=== PATIENT | female | born 1980 | race Caucasian/White ===

== ENCOUNTER → 2019-08-12 12:10 | Outpatient (CLI) | payer BC, SELFPAY ==
--- NOTE | ~2019-08-12 | XR_ITS ---
XR elbow LT min 3V DATE: 08/12/2019 12:47 INDICATION: Left elbow pain TECHNIQUE: 5 views COMPARISON: None FINDINGS: There is mild elevation of the fat pads consistent with elbow joint effusion. There is mild spurring of the coronoid process of the proximal ulna. No fracture, dislocation, periosteal reaction or bone destruction is detected. IMPRESSION: Mild elbow joint effusion Mild degenerative change Reviewed, dictated and finalized at location A. TAL MEDIA DESIGNER
--- NOTE | ~2019-08-12 | XR_ITS ---
XR wrist LT min 3V DATE: 08/12/2019 12:47 INDICATION: Left wrist pain TECHNIQUE: 4 views COMPARISON: 01/07/2018 left wrist FINDINGS: No fracture or dislocation, periosteal reaction or bone destruction is detected. Joint spac es are preserved. No chondrocalcinosis or erosive change. IMPRESSION: Negative Reviewed, dictated and finalized at location A. LE ASSEMBLER IMPRESSION: Negative
== END ==
PROVIDERS: PCP Family Medicine; Visit Provider Family Medicine
DX: M25.532 Pain in left wrist (principal); M25.422 Effusion, left elbow
CPT/HCPCS: 73080; 73110

== ENCOUNTER 2021-10-10 10:27 | Outpatient (CLI) | payer BC, SELFPAY ==
[2021-10-10 11:32] LABS: Beta HCG Quantitative < 2.39 mIU/ML
[2021-10-14 08:19] LABS: FSH 8.7 mIU/mL (***); Progesterone 1.2 ng/mL (***); Prolactin 8.6 ng/mL (***)
[2021-10-16 11:12] LABS: DHEA-Sulfate 141 mcg/dL (19-231)
[2021-10-17 12:52] LABS: Testosterone Free 2.3 pg/mL (0.1-6.4); Testosterone Total 18 ng/dL (2-45)
[2021-10-17 20:52] LABS: Estradiol, Ultrasensitive 42 pg/mL
== END 2021-10-10 10:28 | disposition home or self-care (01) ==
LOC: ANHLAB 10:29
PROVIDERS: PCP Family Medicine; Visit Provider Obstetrics & Gynecology
DX: N91.5 Oligomenorrhea, unspecified (principal)
CPT/HCPCS: 36415; 82627; 82670; 83001; 83498; 84144; 84146; 84402; 84403; 84702

== ENCOUNTER → 2023-06-13 15:55 | Outpatient (CLI) | payer BC, SELFPAY ==
--- NOTE | ~2023-06-13 | MM_ITS ---
EXAMINATION: MM screening [facility] BI w merritt HISTORY: Screening mammogram TECHNIQUE: Craniocaudal and mediolateral oblique 3-D tomosynthesis images were obtained and synthetic 2-D images were generated. CAD analysis was submitted and interpreted. COMPARISON: None, baseline BREAST PARENCHYMAL COMPOSITION: There are scattered areas of fibroglandular density. FINDINGS: RIGHT BREAST: An asymmetry is present in the middle third of the upper breast 7 cm from the nipple on the mediolateral oblique. LEFT BREAST: There is a possible small mass in the anterior third of the lower-outer breast 4 cm from the nipple on mediolateral oblique tomosynthesis image . IMPRESSION: 1. Bilateral breast findings as described above. 2. Additional mammographic views and possible breast ultrasound are recommended to evaluate the above -described breast findings and establish a baseline given that this is the first mammographic examina tion. BI-RADS Category 0: Incomplete: Needs additional imaging evaluation. Reviewed, dictated and finalized at location A. OR STOCK PLAN ADMINISTRATOR IMPRESSION: 1. Bilateral breast findings as described above. 2. Additional mammographic views and possible breast ultrasound are recommended to evaluate the above-described breast findings and establish a baseline given that this is the first mammographic examination. BI-RADS Category 0: Incomplete: Needs additional imaging evaluation.
== END ==
PROVIDERS: PCP Physician Assistant; Visit Provider Physician Assistant
DX: Z12.31 Encounter for screening mammogram for malignant neoplasm of breast (principal); R92.8 Other abnormal and inconclusive findings on diagnostic imaging of breast
CPT/HCPCS: 77063; 77067

== ENCOUNTER → 2023-08-27 09:48 | Outpatient (CLI) | payer BC, SELFPAY ==
--- NOTE | ~2023-08-27 | MMUS_ITS ---
EXAMINATION: MM diagnostic [facility] BI w merritt, US breast BI limited HISTORY: Right breast asymmetry and possible left breast masses on baseline screening mammogram TECHNIQUE: Additional 3-D tomosynthesis images of the breasts were performed and synthetic 2-D images were generated. CAD analysis was submitted and interpreted. High resolution limited bilateral breast ultrasound was performed. COMPARISON: 06/13/2023 BREAST PARENCHYMAL COMPOSITION: There are scattered areas of fibroglandular density. FINDINGS: MAMMOGRAPHIC FINDINGS: The right breast asymmetry somewhat disperses with spot compression and has an appearance similar to the left breast. There appears to be a 4 mm obscured, low density mass in the anterior third of the l ower-outer breast at the 5:00 location, 4 cm from the nipple ULTRASOUND: There is no evidence of focal abnormal solid or cystic mass in the vicinity of the mammographic findi ng in question in the right breast. There is a 5 mm cyst of the left breast at the 5:00 location 2 cm from the nipple. IMPRESSION: 1. No mammographic or sonographic evidence of malignancy. 2. Recommend routine screening mammography in one year. BI-RADS Category 2: Benign finding(s). Reviewed, dictated and finalized at location A. OS BI ADMINISTRATOR IMPRESSION: 1. No mammographic or sonographic evidence of malignancy. 2. Recommend routine screening mammography in one year. BI-RADS Category 2: Benign finding(s).
== END ==
PROVIDERS: PCP Physician Assistant; Visit Provider Physician Assistant
DX: R92.8 Other abnormal and inconclusive findings on diagnostic imaging of breast (principal)
CPT/HCPCS: 76642; 77062; 77066; G0279

== ENCOUNTER 2024-06-16 15:23 | Outpatient (CLI) | payer BC, SELFPAY ==
--- NOTE | ~2024-06-16 | MM_ITS ---
EXAMINATION: MM screening [facility] BI w merritt HISTORY: Screening TECHNIQUE: Craniocaudal and mediolateral oblique 3-D tomosynthesis images were obtained and synthetic 2-D images were generated. CAD analysis was submitted and interpreted. COMPARISON: 06/13/2023 BREAST PARENCHYMAL COMPOSITION: Not dense: There are scattered areas of fibroglandular density. FINDINGS: There is no evidence of suspicious mass, calcification, or architectural distortion to sugg est malignancy in either breast. There has been no suspicious interval change. IMPRESSION: 1. No mammographic evidence of malignancy. 2. Recommend routine screening mammography in one year. BI-RADS Category 1: Negative Reviewed, dictated and finalized at location B. PLANT OPERATOR
== END 2024-06-16 15:24 | disposition home or self-care (01) ==
LOC: MICIMG 15:24
PROVIDERS: PCP Family Medicine; Visit Provider Family Medicine
DX: Z12.31 Encounter for screening mammogram for malignant neoplasm of breast (principal)
CPT/HCPCS: 77063; 77067